=== PATIENT | female | born 1955 | race Caucasian/White ===

== ENCOUNTER 2021-11-08 15:50 | Emergency (ER) | payer OTHER, MEDICARE ==
[2021-11-08 18:28] LABS: HEMOGLOBIN 13.9 gm/dl (12.3-15.3); RED BLOOD COUNT 4.87 M/UL (4.00-5.10); WHITE BLOOD COUNT 10.9 K/UL (4.5-11.0)
[2021-11-08 19:01] LABS: BUN/CREATININE RATIO 14 (0-10)
[2021-11-08] MEDS ORDERED: ANTIVERT 12.512.5 MG PO (21:27)
[2021-11-08] MEDS ORDERED: ZOFRAN4 MG PO (21:27)
== END 2021-11-08 21:30 | disposition home or self-care (01) ==
LOC: ER1 15:50
PROVIDERS: Physician Assistant Medical
DX: R11.2 Nausea with vomiting, unspecified (principal); E87.6 Hypokalemia; E11.9 Type 2 diabetes mellitus without complications; I10 Essential (primary) hypertension; Z20.822 Contact with and (suspected) exposure to COVID-19; Z86.73 Personal history of transient ischemic attack (TIA), and cerebral infarction without residual deficits
CPT/HCPCS: 36600; 70450; 71045; 80053; 81001; 82550; 82553; 82803; 83605; 83874; 84439; 84443; 84484; 85025; 93005; 94760; 96374; 96375; 99284; J0360; J2405; J2550; Q9967; U0002